=== PATIENT | female | born 1940 | race Caucasian/White ===

== ENCOUNTER → 2017-07-15 10:27 | Outpatient (CLI) | payer MEDICARE ==
[2017-07-15 11:37] LABS: INR 2.42 (0.85-1.17); PROTIME 25.6 SECONDS (11.6-15.0)
== END | disposition home or self-care (01) ==
LOC: D.LABREF 10:27
PROVIDERS: Family Medicine
DX: Z51.81 Encounter for therapeutic drug level monitoring (principal); Z79.01 Long term (current) use of anticoagulants

== ENCOUNTER → 2018-01-15 10:30 | Outpatient (CLI) | payer MEDICARE ==
[~2018-01-15 10:30] MED LIST: ATROVENT 0.02%2.5 ML UPD; BROVANA15 MCG/2 M INH; COREG25 MG; COUMADIN2 MG PO; COUMADIN3 MG; K-TAB10 MEQ; LASIX40 MG; LEVOXYL25 MCG; LIPITOR80 MG; OMEPRAZOLE20 M1; PACERONE200 MG; ULTRAM50 MG PO; XOPENEX 0.0.63 MG/3 INH; ZOLOFT50 MG
[2018-01-23 11:51] VITALS: BMI 22.3
== END | disposition home or self-care (01) ==
LOC: D.CT 10:30 → D.US 11:30
DX: R60.0 Localized edema (principal)

== ENCOUNTER 2018-01-18 15:12 | Inpatient (IN) | payer MEDICARE ==
[~2018-01-18] VITALS: Ht 162.6 cm; Wt 59.1 kg
--- NOTE | ~2018-01-18 | DS ---
PATIENT:MILAD DOWNS :36 MEDICAL RECORD: [id number] DISCHARGE SUMMARY ADMISSION DATE: 01/18/18 DISCHARGE DATE: 01/22/18 DATE OF ADMISSION: 01/18/2018. DATE OF DISCHARGE: 01/22/2018. ADMISSION DIAGNOSES: Congestive heart failure, limb pain, urinary tract infection. DISCHARGE DIAGNOSES: Congestive heart failure, limb pain, urinary tract infection, chronic obstructive pulmonary disease. CONSULTS: Orthopedist, pulmonology. HOSPITAL COURSE: The patient was admitted after having a fall 3-4 weeks ago. No significant findings on CT. Normal venous Doppler. Pain worsened, presented to the ER, was found to have pleural effusion, but it was chronic with history of AFib as well as CHF chronic with shortness of breath. Pulmonology consulted. For the limb pain, orthopedics consulted. She was also found to have urinary tract infection and was started on antibiotics and cultures have cleared. MRI of the right femur suggestive of bone bruising in superior and inferior pubic rami. No evidence of fracture. The patient was also found to have a cirrhotic appearing liver and no significant changes on her gallbladder with ultrasound. The patient has been cleared by pulmonology for discharge to rehab, has been cleared by orthopedics for discharge to rehabilitation. No further intervention required. The patient is discharged to rehab in stable and improved condition. PHYSICAL EXAMINATION: VITAL SIGNS ON DISCHARGE: Temperature 98.8, blood pressures 139/52, heart rate 59, respirations 15, O2 sats 98%. HEART: Regular rate and rhythm. LUNGS: Clear. ABDOMEN: Soft. EXTREMITIES: Present times 4. Significantly decreased tenderness. Urinalysis: Yellow, clear, normal UA. DISPOSITION: The patient is discharged to rehab as above. DISCHARGE MEDICATIONS: Per med rec. FOLLOWUP: Follow up with Dr. Campbell upon discharge from rehabilitation. Appreciate Dr. Nova, Dr. Barajas. I agree with their assessment. See chart for further details. TRANSINT:[id number] Voice Confirmation ID: [id number] DOCUMENT ID: [id number] DISCHARGE SUMMARY REPORT [id number] MILAD DOWNS NESTOR GRIMALDO DO at 1650 CC: [id number] DICTATION DATE: 01/22/18 1149 [employer]S: 01/22/18 1209 DIS IN 01/22/18 [facility] [address] [place] [address]
[2018-01-18] MEDS ORDERED: LASIX40 MG (15:31)
[2018-01-18] MEDS ORDERED: K-TAB10 MEQ (15:31)
[2018-01-18] MEDS ORDERED: ZOLOFT50 MG (15:31)
[2018-01-18] MEDS ORDERED: COREG25 MG (15:31)
[2018-01-18] MEDS ORDERED: LIPITOR80 MG (15:32)
[2018-01-18] MEDS ORDERED: PACERONE200 MG (15:32)
[2018-01-18] MEDS ORDERED: COUMADIN3 MG (15:32)
[2018-01-18] MEDS ORDERED: LEVOXYL25 MCG (15:32)
[2018-01-18] MEDS ORDERED: OMEPRAZOLE20 M1 (15:32)
[2018-01-18 16:30] LABS: BASOPHILS 0.1 % (0-2); EOSINOPHILS 1.4 % (0-7); HEMATOCRIT 34.3 % (36.0-48.0); HEMOGLOBIN 10.8 g/dL (12-16); IMMATURE GRANULOCYTES 0.1 % (0-5); LYMPHOCYTES 18.1 % (15-50); MCH 26.9 pg (26.0-34.0); MCHC 31.5 g/dL (31.0-37.0); MCV 85.3 fL (80.0-100.0); MEAN PLATELET VOLUME 11.1 fL (7.4-10.4); MONOCYTES 6.6 % (2-11); NEUTROPHILS 73.7 % (40-80); PLATELET COUNT 133 10x3/uL (130-400); RBC 4.02 10x6/uL (4.00-5.40); RDW 21.4 % (11.5-14.5); WBC 7.9 10x3/uL (4.8-10.8)
[2018-01-18 16:49] LABS: ALBUMIN 2.9 g/dL (3.4-5.0); ANION GAP 10.7 mmol/L (8-16); BILIRUBIN - TOTAL 1.06 mg/dL (0.2-1.3); C-REACTIVE PROTEIN 2.2 mg/dL (0.0-0.9); CALCIUM 8.1 mg/dL (8.5-10.1); CARBON DIOXIDE 24.8 mmol/L (21.0-32.0); CREATININE - SERUM 1.1 mg/dL (0.6-1.3); POTASSIUM - SERUM 3.5 mmol/L (3.5-5.1); PROTEIN - SERUM 6.9 g/dL (6.4-8.2)
[2018-01-18 18:36] LABS: APPEARANCE CLEAR (CLEAR); BILIRUBIN NEGATIVE (NEGATIVE); COLOR YELLOW (YELLOW); GLUCOSE NEGATIVE (NEGATIVE); KETONE NEGATIVE (NEGATIVE); NITRITE NEGATIVE (NEGATIVE); PROTEIN NEGATIVE (NEGATIVE); SPECIFIC GRAVITY 1.015 (1.005-1.020); UROBILINOGEN NORMAL (NORMAL)
[2018-01-18 18:38] VITALS: BP 169/85
[2018-01-18 18:38] LABS: BACTERIA MODERATE /hpf (NONE SEEN); EPITHELIAL CELLS 0-5 /hpf (0-5); RED CELLS - URINE 0-5 /hpf (0-5)
[2018-01-18 18:53] LABS: PRO BNP 2354 pg/mL (0-450)
[2018-01-18 19:01] LABS: TROPONIN-I < 0.017 ng/mL (0.000-0.060)
[2018-01-19 05:58] VITALS: BP 154/109
[2018-01-19 08:02] LABS: INR 3.25 (0.85-1.17); PROTIME 32.4 SECONDS (11.6-15.0)
[2018-01-19 08:03] LABS: APTT 67.3 SECONDS (22.8-39.4)
[2018-01-19 08:23] VITALS: BP 155/57
[2018-01-19 11:28] VITALS: BP 160/65
[2018-01-19 12:38] LABS: CKMB 1.6 U/L (0.0-3.6); CREATINE KINASE 69 UL (21-215)
[2018-01-19 13:43] VITALS: BMI 25.6
[2018-01-19 15:27] VITALS: BP 167/74; Ht 162.6 cm; Wt 59.1 kg
[2018-01-19 15:54] VITALS: BP 167/74
[2018-01-20] VITALS: BP 144/58
[2018-01-20 04:00] VITALS: BP 125/71
[2018-01-20 04:41] LABS: BASOPHILS 0.1 % (0-2); HEMATOCRIT 32.1 % (36.0-48.0); HEMOGLOBIN 10.2 g/dL (12-16); IMMATURE GRANULOCYTES 0.1 % (0-5); LYMPHOCYTES 19.5 % (15-50); MCH 26.8 pg (26.0-34.0); MCHC 31.8 g/dL (31.0-37.0); MCV 84.3 fL (80.0-100.0); MONOCYTES 10.9 % (2-11); NEUTROPHILS 68.4 % (40-80); PLATELET COUNT 123 10x3/uL (130-400); RBC 3.81 10x6/uL (4.00-5.40); RDW 21.7 % (11.5-14.5); WBC 7.6 10x3/uL (4.8-10.8)
[2018-01-20 04:55] LABS: INR 3.27 (0.85-1.17); PROTIME 32.6 SECONDS (11.6-15.0)
[2018-01-20 05:08] LABS: ALBUMIN 2.5 g/dL (3.4-5.0); ANION GAP 7.7 mmol/L (8-16); BILIRUBIN - TOTAL 1.09 mg/dL (0.2-1.3); C-REACTIVE PROTEIN 2.6 mg/dL (0.0-0.9); CALCIUM 7.6 mg/dL (8.5-10.1); CREATININE - SERUM 1.1 mg/dL (0.6-1.3); MAGNESIUM - SERUM 1.8 mg/dL (1.8-2.4); PHOSPHOROUS 2.7 mg/dL (2.5-4.9); POTASSIUM - SERUM 3.7 mmol/L (3.5-5.1); PROTEIN - SERUM 6.1 g/dL (6.4-8.2)
[2018-01-20 08:31] VITALS: BP 141/78
[2018-01-20 13:20] VITALS: BP 123/63
[2018-01-20 16:24] VITALS: BP 124/54
[2018-01-20 20:12] VITALS: BP 127/51
[2018-01-21 04:17] LABS: BASOPHILS 0.1 % (0-2); EOSINOPHILS 1.3 % (0-7); HEMATOCRIT 28.7 % (36.0-48.0); IMMATURE GRANULOCYTES 0.1 % (0-5); LYMPHOCYTES 20.4 % (15-50); MCH 26.6 pg (26.0-34.0); MCHC 31.4 g/dL (31.0-37.0); MCV 84.9 fL (80.0-100.0); MEAN PLATELET VOLUME 11.7 fL (7.4-10.4); MONOCYTES 9.9 % (2-11); NEUTROPHILS 68.2 % (40-80); PLATELET COUNT 126 10x3/uL (130-400); RBC 3.38 10x6/uL (4.00-5.40); RDW 21.8 % (11.5-14.5); WBC 6.8 10x3/uL (4.8-10.8)
[2018-01-21 04:28] LABS: INR 3.64 (0.85-1.17); PROTIME 35.4 SECONDS (11.6-15.0)
[2018-01-21 04:34] LABS: ALBUMIN 2.2 g/dL (3.4-5.0); ANION GAP 11.3 mmol/L (8-16); BILIRUBIN - TOTAL 0.59 mg/dL (0.2-1.3); C-REACTIVE PROTEIN 2.9 mg/dL (0.0-0.9); CALCIUM 7.5 mg/dL (8.5-10.1); CARBON DIOXIDE 26.7 mmol/L (21.0-32.0); CREATININE - SERUM 1.2 mg/dL (0.6-1.3); MAGNESIUM - SERUM 1.9 mg/dL (1.8-2.4); PHOSPHOROUS 3.2 mg/dL (2.5-4.9); PROTEIN - SERUM 5.6 g/dL (6.4-8.2)
[2018-01-21 05:21] VITALS: BP 139/60
[2018-01-21 05:43] LABS: ERYTHROCYTE SEDIMENTATION RATE 13 mm/hr (0-30)
[2018-01-21 07:20] LABS: % SATURATION 10 % (15-55); IRON 33 ug/dl (35-150); TOTAL IRON BIND CAPACITY 321 ug/dl (260-445); UNSAT IRON BIND CAPACITY 288 ug/dl (150-375)
[2018-01-21 07:49] VITALS: BP 135/57
[2018-01-21 10:42] VITALS: BP 131/51
[2018-01-21 12:57] LABS: APPEARANCE CLEAR (CLEAR); BILIRUBIN NEGATIVE (NEGATIVE); COLOR YELLOW (YELLOW); GLUCOSE NEGATIVE (NEGATIVE); KETONE NEGATIVE (NEGATIVE); NITRITE NEGATIVE (NEGATIVE); PROTEIN NEGATIVE (NEGATIVE); SPECIFIC GRAVITY 1.015 (1.005-1.020)
[2018-01-21 15:42] VITALS: BP 122/52
[2018-01-21 20:00] VITALS: BP 146/64
[2018-01-21 23:59] VITALS: BP 136/52
[2018-01-22 04:00] VITALS: BP 139/60
[2018-01-22 04:38] LABS: BASOPHILS 0.1 % (0-2); EOSINOPHILS 1.4 % (0-7); HEMATOCRIT 27.5 % (36.0-48.0); HEMOGLOBIN 8.7 g/dL (12-16); IMMATURE GRANULOCYTES 0.1 % (0-5); LYMPHOCYTES 16.1 % (15-50); MCH 26.7 pg (26.0-34.0); MCHC 31.6 g/dL (31.0-37.0); MCV 84.4 fL (80.0-100.0); MEAN PLATELET VOLUME 11.7 fL (7.4-10.4); MONOCYTES 10.3 % (2-11); PLATELET COUNT 121 10x3/uL (130-400); RBC 3.26 10x6/uL (4.00-5.40); WBC 7.6 10x3/uL (4.8-10.8)
[2018-01-22 04:48] LABS: ANION GAP 9.4 mmol/L (8-16); CALCIUM 7.5 mg/dL (8.5-10.1); CARBON DIOXIDE 27.5 mmol/L (21.0-32.0); CREATININE - SERUM 1.1 mg/dL (0.6-1.3); INR 3.14 (0.85-1.17); POTASSIUM - SERUM 3.9 mmol/L (3.5-5.1); PROTIME 31.5 SECONDS (11.6-15.0)
[2018-01-22 08:24] VITALS: BP 139/52
[2018-01-22 09:16] LABS: FOLATE (FOLIC ACID) - SERUM 7.9 ng/mL (>3.0)
[2018-01-22] MEDS ORDERED: ATROVENT 0.02%2.5 ML UPD (11:39)
[2018-01-22] MEDS ORDERED: BROVANA15 MCG/2 M INH (11:39)
[2018-01-22] MEDS ORDERED: XOPENEX 0.0.63 MG/3 INH (11:39)
[2018-01-22] MEDS ORDERED: COUMADIN2 MG PO (11:40)
[2018-01-22] MEDS ORDERED: ULTRAM50 MG PO (11:41)
[2018-01-22 13:46] VITALS: BP 120/44
[2018-01-23 15:14] LABS: IMMUNOGLOBULIN E 65 IU/mL (0-100)
== END 2018-01-22 16:36 | DRG 432 ==
LOC: D.ER 15:12 → D.MS 18:12 → D.EDHOLD 18:12 → D.MS 18:50
PROVIDERS: Family Medicine; Internal Medicine Pulmonary Disease; Orthopaedic Surgery
DX: K74.60 Unspecified cirrhosis of liver (principal); I50.23 Acute on chronic systolic (congestive) heart failure; R18.8 Other ascites; N39.0 Urinary tract infection, site not specified; M79.651 Pain in right thigh; R10.31 Right lower quadrant pain; I11.0 Hypertensive heart disease with heart failure; I69.320 Aphasia following cerebral infarction; I48.91 Unspecified atrial fibrillation; Z79.02 Long term (current) use of antithrombotics/antiplatelets; J44.9 Chronic obstructive pulmonary disease, unspecified; K80.20 Calculus of gallbladder without cholecystitis without obstruction; E03.9 Hypothyroidism, unspecified; E78.5 Hyperlipidemia, unspecified; D64.9 Anemia, unspecified; W19.XXXA Unspecified fall, initial encounter; Z79.01 Long term (current) use of anticoagulants

== ENCOUNTER 2018-01-22 16:13 | Inpatient (IN) | payer MEDICARE ==
[~2018-01-22] VITALS: Ht 162.6 cm; Wt 59.0 kg
--- NOTE | ~2018-01-22 | RHP ---
PATIENT: MILAD DOWNS MEDICAL RECORD: [id number] ACCOUNT: [id number] LOCATION:[facility]1113 : 36 ADMISSION DATE: 01/22/18 REHABILITATION HISTORY AND PHYSICAL EXAMINATION POST ADMISSION PHYSICIAN EXAMINATION POST-ADMISSION PHYSICAL EXAMINATION AND HISTORY AND PHYSICAL DATE OF ADMISSION: 01/22/2018 ADMITTING DIAGNOSIS: Debility secondary to pleural effusion. HISTORY OF PRESENT ILLNESS: The patient was admitted to the inpatient rehab secondary to pleural effusion. She sustained a recent fall. With an MRI on 01/19, findings suggestive for some bone bruises in her upper right femur and also superior and inferior pubic rami. No trav displaced fracture at the time. A infiltrative process was not entirely excluded in the right femur, though findings were consistent with myositis and extensive subcutaneous edema throughout the right thigh. She also had some pelvic ascites. The patient is a 77-year-old female patient, who had a fall 3-4 weeks ago, had been complaining of worsening pain in her right thigh and groin pain. She was seen in her primary care's office, had an unremarkable CT of the pelvis and normal left lower extremity Doppler. Her pain worsened with inability to ambulate. She presented to the ER. She was admitted for pleural effusion, though this is not new. Got a history of AFib, congestive heart failure, EF of 30% to 35% on echo. She has moderate expressive aphasia secondary to CVA. She is also complaining of right lower shoulder pain due to the fall. She has got a history of COPD, hypertension, anemia, hypothyroidism, cholelithiasis, cirrhosis, ascites, elevated LFTs, and pleural effusion. She is having increased pain, increased mobility problems, self-care deficit, increased use for O2. She was living independently at [facility]. She was independent with her mobility and ADLs prior to this fall. She is currently set up for mod assist to her ADLs, mod assist to total assist for mobility. She and her family plan on her to regain her strength and hopefully be able to move to [place] with her daughter after her acute inpatient rehab stay. Comorbidities in this patient include pleural effusion, got a history of cirrhosis, right lower lobe compression atelectasis, history of COPD from smoking, allergic rhinitis, atrial fibrillation, hypertension, hypothyroidism, iron-deficient anemia, cholelithiasis, debility, limb pain, elevated LFTs. PAST MEDICAL HISTORY: Significant for CVA times 2, thyroid problems, hypertension, CHF, atrial fib, edema, COPD, constipation, asthma, bronchitis, chronic rhinitis, chest pain, cirrhosis, past tobacco use. PAST SURGICAL HISTORY: Includes hysterectomy. ALLERGIES: TYLENOL. CURRENT MEDICATIONS: Include Zoloft 50 mg at bedtime. She is on atorvastatin 80 mg daily, warfarin 2 mg daily, Protonix 40 mg daily, Coreg 25 mg b.i.d., tramadol 50 mg every 6 hours p.r.n., potassium 10 mEq b.i.d., furosemide 40 mg b.i.d., amiodarone 200 mg b.i.d., Brovana 15 mcg b.i.d., MiraLax 17 g in 8 ounces of water daily. HABITS: No current alcohol or tobacco use. HISTORY AND PHYSICAL [id number] MLIAD DOWNS FAMILY HISTORY: Noncontributory. SOCIAL HISTORY: The patient hopes to regain her strength and hopefully she is going to move down to [place] with one of her daughters. REVIEW OF SYSTEMS: GENERAL: Does complain of weakness and fatigue. HEENT: Denies cold, cough, or congestion. CARDIOVASCULAR: Denies chest pain. PHYSICAL EXAMINATION: VITAL SIGNS: Stable, afebrile. GENERAL: Elderly female, in no acute distress upon exam. HEENT: Normocephalic and atraumatic. Mucosa moist. NECK: Supple. No lymphadenopathy. LUNGS: Clear. HEART: Irregular rate and rhythm. ABDOMEN: Benign. She is somewhat protuberant, but nondistended. EXTREMITIES: Does have some noted bruising and swelling, especially to her thigh region. NEUROLOGIC: Does have difficulty with talking and also weakness. LABORATORY DATA: Her white count is 5.6, H&H of 8.9 and 27.7, platelet count is 187. Her sodium is 140, potassium 4.3, BUN and creatinine of 33 and 1.3, and blood sugar is noted to be 99. Her INR is noted to be 1.02. ASSESSMENT: This is a 77-year-old female patient admitted to the rehab with a working diagnosis of debility. The patient has potential to make improvement. We will institute the following multidisciplinary therapies including, but not limited to physical, occupational, respiratory, speech, nutritional services, prosthetics and orthotics. Given her complex medical condition and risks for more complications, rehabilitation services cannot be provided at a low level of care such as a fdc facility. PLAN: 1. Admit to [facility] for intensive inpatient therapy to include the following disciplines: A. Physical therapy to improve gait, all transfer skills and bed mobility to a modified independent level. B. Occupational therapy to improve activities of daily living to a modified independent level. C. Case management to assist with discharge planning and placement options. D. Nutrition to assist with nutritional needs. E. Rehabilitation nursing to assist in monitoring the patient's underlying medical conditions and to assist with any type of bowel or bladder management. 2. The patient's current medications and medical care will be continued. 3. The patient will be placed on standard fall precautions. 4. The patient's estimated length of stay is approximately 7-10 days. 5. We will discuss this patient during care team staff meeting this week. TRANSINT:[id number] Voice Confirmation ID: [id number] DOCUMENT ID: [id number] [place] notes whether there has been none or any medical/functional HISTORY AND PHYSICAL [id number] MILAD DOWNS change since admission: - No change since preadmission screen. [place] attests patient continues to be appropriate for IRF: - Continues to be appropriate. CAROL ANN SPAULDING MD at 1244 CC: [id number] DICTATION DATE: 01/23/18 1037 [employer]: 01/23/18 1123 DIS IN 02/05/18 [facility] [address] [place] [address]
[2018-01-22 19:13] VITALS: BP 119/49; BMI 22.3
[2018-01-23 07:06] LABS: BASOPHILS 0.5 % (0-2); EOSINOPHILS 7.8 % (0-7); HEMATOCRIT 27.7 % (36.0-48.0); HEMOGLOBIN 8.9 g/dL (12-16); IMMATURE GRANULOCYTES 0.2 % (0-5); LYMPHOCYTES 24.1 % (15-50); MCH 28.4 pg (26.0-34.0); MCHC 32.1 g/dL (31.0-37.0); MEAN PLATELET VOLUME 9.4 fL (7.4-10.4); MONOCYTES 11.1 % (2-11); NEUTROPHILS 56.3 % (40-80); RBC 3.13 10x6/uL (4.00-5.40)
[2018-01-23 07:08] LABS: MCV 88.5 fL (80.0-100.0); PLATELET COUNT 187 10x3/uL (130-400); WBC 5.6 10x3/uL (4.8-10.8)
[2018-01-23 07:17] LABS: ANION GAP 13.6 mmol/L (8-16); CALCIUM 8.6 mg/dL (8.5-10.1); CARBON DIOXIDE 24.7 mmol/L (21.0-32.0); CREATININE - SERUM 1.3 mg/dL (0.6-1.3); POTASSIUM - SERUM 4.3 mmol/L (3.5-5.1)
[2018-01-23 07:25] LABS: INR 1.02 (0.85-1.17)
[2018-01-23 08:00] VITALS: BP 135/46
[2018-01-23 11:51] VITALS: Ht 162.6 cm; Wt 59.0 kg
[2018-01-23 20:00] VITALS: BP 122/42
[2018-01-24 06:32] LABS: INR 1.59 (0.85-1.17); PROTIME 18.4 SECONDS (11.6-15.0)
[2018-01-24 08:00] VITALS: BP 133/46
[2018-01-24 21:24] VITALS: BP 138/63
[2018-01-25 07:26] LABS: BASOPHILS 0.1 % (0-2); EOSINOPHILS 1.3 % (0-7); HEMATOCRIT 28.6 % (36.0-48.0); HEMOGLOBIN 8.9 g/dL (12-16); IMMATURE GRANULOCYTES 0.3 % (0-5); LYMPHOCYTES 20.6 % (15-50); MCH 26.7 pg (26.0-34.0); MCHC 31.1 g/dL (31.0-37.0); MEAN PLATELET VOLUME 11.3 fL (7.4-10.4); MONOCYTES 10.3 % (2-11); NEUTROPHILS 67.4 % (40-80); RBC 3.33 10x6/uL (4.00-5.40); RDW 22.6 % (11.5-14.5); WBC 6.7 10x3/uL (4.8-10.8)
[2018-01-25 07:27] LABS: MCV 85.9 fL (80.0-100.0); PLATELET COUNT 128 10x3/uL (130-400)
[2018-01-25 07:33] LABS: INR 1.65 (0.85-1.17)
[2018-01-25 07:36] LABS: ANION GAP 7.9 mmol/L (8-16); CALCIUM 7.8 mg/dL (8.5-10.1); CARBON DIOXIDE 29.5 mmol/L (21.0-32.0); CREATININE - SERUM 1.1 mg/dL (0.6-1.3); POTASSIUM - SERUM 4.4 mmol/L (3.5-5.1)
[2018-01-25 08:20] VITALS: BP 161/61
[2018-01-25 19:00] VITALS: BP 128/44
[2018-01-26 08:00] VITALS: BP 120/49
[2018-01-26 08:13] LABS: INR 1.66 (0.85-1.17)
[2018-01-26 16:31] VITALS: BP 140/50
[2018-01-26 19:00] VITALS: BP 131/36
[2018-01-27 07:00] LABS: INR 1.68 (0.85-1.17); PROTIME 19.3 SECONDS (11.6-15.0)
[2018-01-27 08:00] VITALS: BP 130/41
[2018-01-27 16:52] VITALS: BP 141/38
[2018-01-27 19:00] VITALS: BP 116/54
[2018-01-28 07:04] LABS: INR 1.71 (0.85-1.17); PROTIME 19.5 SECONDS (11.6-15.0)
[2018-01-28 08:00] VITALS: BP 116/45
[2018-01-28 19:00] VITALS: BP 135/41
[2018-01-29 06:56] LABS: INR 1.77 (0.85-1.17); PROTIME 20.1 SECONDS (11.6-15.0)
[2018-01-29 23:07] VITALS: BP 124/40
[2018-01-30 06:06] LABS: INR 1.93 (0.85-1.17); PROTIME 21.4 SECONDS (11.6-15.0)
[2018-01-30 08:56] VITALS: BP 137/54
[2018-01-30 21:54] VITALS: BP 134/50
[2018-01-31 07:18] LABS: INR 1.86 (0.85-1.17); PROTIME 20.8 SECONDS (11.6-15.0)
[2018-01-31 09:04] VITALS: BP 159/61
[2018-01-31 17:10] VITALS: BP 126/62
[2018-01-31 21:21] VITALS: BP 137/44
[2018-02-01 06:45] LABS: BASOPHILS 0.3 % (0-2); EOSINOPHILS 1.6 % (0-7); HEMATOCRIT 29.5 % (36.0-48.0); HEMOGLOBIN 9.2 g/dL (12-16); IMMATURE GRANULOCYTES 0.3 % (0-5); LYMPHOCYTES 20.2 % (15-50); MCH 27.1 pg (26.0-34.0); MCHC 31.2 g/dL (31.0-37.0); MCV 86.8 fL (80.0-100.0); MEAN PLATELET VOLUME 12.2 fL (7.4-10.4); MONOCYTES 11.1 % (2-11); NEUTROPHILS 66.5 % (40-80); PLATELET COUNT 143 10x3/uL (130-400); RDW 23.2 % (11.5-14.5)
[2018-02-01 06:51] LABS: INR 1.98 (0.85-1.17); PROTIME 21.9 SECONDS (11.6-15.0)
[2018-02-01 07:00] LABS: CALCIUM 8.2 mg/dL (8.5-10.1); CREATININE - SERUM 1.1 mg/dL (0.6-1.3)
[2018-02-01 08:00] VITALS: BP 154/52
[2018-02-02 07:00] VITALS: BP 126/87
[2018-02-02 17:48] LABS: INR 2.19 (0.85-1.17); PROTIME 23.8 SECONDS (11.6-15.0)
[2018-02-02 20:09] VITALS: BP 135/53
[2018-02-03 06:35] LABS: BASOPHILS 0.1 % (0-2); EOSINOPHILS 1.4 % (0-7); HEMATOCRIT 27.9 % (36.0-48.0); HEMOGLOBIN 8.8 g/dL (12-16); IMMATURE GRANULOCYTES 0.3 % (0-5); LYMPHOCYTES 18.2 % (15-50); MCH 27.3 pg (26.0-34.0); MCHC 31.5 g/dL (31.0-37.0); MCV 86.6 fL (80.0-100.0); MEAN PLATELET VOLUME 12.1 fL (7.4-10.4); MONOCYTES 10.5 % (2-11); NEUTROPHILS 69.5 % (40-80); PLATELET COUNT 134 10x3/uL (130-400); RBC 3.22 10x6/uL (4.00-5.40); RDW 23.1 % (11.5-14.5)
[2018-02-03 06:41] LABS: INR 2.22 (0.85-1.17)
[2018-02-03 06:54] LABS: ANION GAP 10.5 mmol/L (8-16); CALCIUM 8.1 mg/dL (8.5-10.1); CARBON DIOXIDE 27.4 mmol/L (21.0-32.0); CREATININE - SERUM 1.2 mg/dL (0.6-1.3); POTASSIUM - SERUM 3.9 mmol/L (3.5-5.1)
[2018-02-03 08:27] VITALS: BP 141/39
[2018-02-03 16:35] VITALS: BP 136/52
[2018-02-03 20:29] VITALS: BP 126/45
[2018-02-04 06:51] LABS: INR 2.93 (0.85-1.17); PROTIME 29.8 SECONDS (11.6-15.0)
[2018-02-04 08:00] VITALS: BP 139/62
[2018-02-04 09:35] LABS: APPEARANCE CLOUDY (CLEAR); COLOR YELLOW (YELLOW)
[2018-02-04 09:36] LABS: BILIRUBIN NEGATIVE (NEGATIVE); GLUCOSE NEGATIVE (NEGATIVE); KETONE NEGATIVE (NEGATIVE); NITRITE NEGATIVE (NEGATIVE); PROTEIN TRACE mg/dL (NEGATIVE)
[2018-02-04 09:39] LABS: HYALINE CAST 25-50 /lpf (NONE SEEN)
[2018-02-04 09:41] LABS: BACTERIA MANY /hpf (NONE SEEN); EPITHELIAL CELLS 0-5 /hpf (0-5); RED CELLS - URINE 0-5 /hpf (0-5)
[2018-02-04 09:42] LABS: AMORPHOUS SEDIMENT <1+ /lpf (NONE SEEN); MUCUS <1+ /lpf (NONE SEEN)
[2018-02-04 19:00] VITALS: BP 153/60
[2018-02-05 07:07] LABS: BASOPHILS 0.1 % (0-2); EOSINOPHILS 1.8 % (0-7); HEMATOCRIT 27.5 % (36.0-48.0); HEMOGLOBIN 8.6 g/dL (12-16); IMMATURE GRANULOCYTES 0.1 % (0-5); LYMPHOCYTES 17.5 % (15-50); MCH 27.2 pg (26.0-34.0); MCHC 31.3 g/dL (31.0-37.0); MEAN PLATELET VOLUME 11.3 fL (7.4-10.4); MONOCYTES 9.8 % (2-11); NEUTROPHILS 70.7 % (40-80); PLATELET COUNT 137 10x3/uL (130-400); RBC 3.16 10x6/uL (4.00-5.40); RDW 22.8 % (11.5-14.5)
[2018-02-05 07:21] LABS: ANION GAP 8.4 mmol/L (8-16); CALCIUM 7.8 mg/dL (8.5-10.1); CARBON DIOXIDE 27.4 mmol/L (21.0-32.0); CREATININE - SERUM 1.2 mg/dL (0.6-1.3); POTASSIUM - SERUM 3.8 mmol/L (3.5-5.1)
[2018-02-05 07:31] LABS: INR 3.04 (0.85-1.17); PROTIME 30.7 SECONDS (11.6-15.0)
[2018-02-05 08:00] VITALS: BP 137/42
[2018-02-05] MEDS ORDERED: COREG6.25 MG PO (08:39)
[2018-02-05] MEDS ORDERED: SYNTHROID50 MCG PO (08:40)
[2018-02-05] MEDS ORDERED: CIPRO250 MG PO (08:46)
== END 2018-02-05 15:20 | disposition home or self-care (01) | DRG 947 ==
LOC: D.REHAB 16:13
PROVIDERS: Emergency Medicine
DX: R53.81 Other malaise (principal); I50.23 Acute on chronic systolic (congestive) heart failure; J98.11 Atelectasis; J90 Pleural effusion, not elsewhere classified; J44.9 Chronic obstructive pulmonary disease, unspecified; J30.9 Allergic rhinitis, unspecified; I48.91 Unspecified atrial fibrillation; E03.9 Hypothyroidism, unspecified; D50.9 Iron deficiency anemia, unspecified; K80.20 Calculus of gallbladder without cholecystitis without obstruction; R79.89 Other specified abnormal findings of blood chemistry; Z87.891 Personal history of nicotine dependence; I11.0 Hypertensive heart disease with heart failure